=== PATIENT | female | born 1990 | race Caucasian/White ===

== ENCOUNTER 2018-07-24 10:47 | Emergency (ER) | payer SELFPAY ==
[~2018-07-24] VITALS: Ht 154.9 cm; Wt 45.4 kg
[2018-07-24] MEDS ORDERED: ACETAMINOPHEN 325 MG TAB PO ONE (11:30)
--- NOTE | 2018-07-24 13:52 | Diagnostic Imaging Report ---
Examination: CT BRAIN WITHOUT CONTRAST History:Left-sided headache. Earache. Comparison studies:None Technique: Axial images were obtained from the skull base to the vertex. Coronal and sagittal images reconstructed from the axial data. Dose modulation, iterative reconstruction, and/or weight based adjustment of the mA/kV was utilized to reduce the radiation dose to as low as reasonably achievable. Intravenous contrast: None Findings: Scalp: No abnormalities. Bones: No fractures, blastic or lytic lesions. Brain sulci: Appropriate for age. Ventricles: Normal in size and configuration. No hydrocephalus. Extra-axial space: No abnormalities. Parenchyma: No abnormal densities. No masses, hemorrhage, or acute or chronic cortical based vascular insults. Sellar/suprasellar region: No abnormalities. Craniocervical junction: Patent foramen magnum. No Chiari one malformation. Incidental findings: None. Impression: No intracranial abnormalities. Signed by: Dr. Martha Mccallum M.D. on 07/24/2018 1:48 PM
[2018-07-24 14:03] VITALS: BP 130/88
== END 2018-07-24 14:04 | disposition home or self-care (01) ==
LOC: ER 10:47
DX: K02.9 Dental caries, unspecified (principal); H92.02 Otalgia, left ear; R51 Headache; H91.3 Deaf nonspeaking, not elsewhere classified; F17.210 Nicotine dependence, cigarettes, uncomplicated
CPT/HCPCS: 70450; 99283

== ENCOUNTER 2018-08-18 09:26 | Emergency (ER) | payer SELFPAY ==
[~2018-08-18] VITALS: Ht 154.9 cm; Wt 45.4 kg
[2018-08-18] MEDS ORDERED: MORPHINE SULFATE 2 MG/ML SYR IV STA (09:38)
[2018-08-18] MEDS ORDERED: ONDANSETRON HCL INJ 2 MG/ML VIAL IV STA (09:38)
[2018-08-18] MEDS ORDERED: SODIUM CHLORIDE 0.9% 1000ML 1,000 ML IV SCH ×2 (09:45→11:00)
[2018-08-18 10:13] LABS: BASOPHILS % 0.3 % (0.0-1.0); EOSINOPHILS % 0.1 % (0.0-6.0); HEMATOCRIT 43.4 % (34.2-44.1); HEMOGLOBIN 15.1 g/dL (12.0-16.0); LYMPHOCYTES # (AUTO) 1.3 (1.0-3.2); LYMPHOCYTES % 10.9 % (18.0-39.1); MEAN CORPUSCULAR HEMOGLOBIN 31.3 pg (28-32); MEAN CORPUSCULAR HGB CONC 34.8 g/dL (31-35); MEAN CORPUSCULAR VOLUME 89.9 fL (81-99); MONOCYTES # (AUTO) 0.4 (0.2-0.8); MONOCYTES % 3.3 % (4.4-11.3); NEUTROPHILS # (AUTO) 10.2 (2.1-6.9); NEUTROPHILS % 85.1 % (38.7-80.0); PLATELET COUNT 238 x10e3/uL (140-360); RED BLOOD COUNT 4.83 x10e6/uL (3.6-5.1); RED CELL DISTRIBUTION WIDTH 11.8 % (11.7-14.4)
[2018-08-18 10:15] LABS: COLOR,URINE YELLOW (YELLOW)
[2018-08-18 10:16] LABS: BILIRUBIN,URINE NEGATIVE (NEGATIVE); CLARITY,URINE SL CLOUDY (CLEAR); KETONES,URINE 2+ (NEGATIVE); LEUKOCYTE ESTERASE ,URINE NEGATIVE (NEGATIVE); NITRITE,URINE NEGATIVE (NEGATIVE); PROTEIN,URINE DIPSTICK TRACE (NEGATIVE); URINE UROBILINOGEN 0.2 mg/dL (0.2 - 1)
[2018-08-18 10:17] LABS: PREGNANCY TEST, URINE NEGATIVE (NEGATIVE)
[2018-08-18 10:28] LABS: AMORPHOUS SEDIMENT,URINE RARE (FEW); EPITHELIAL CELLS,URINE MODERATE /LPF
[2018-08-18 10:29] LABS: MUCUS,URINE RARE (RARE)
[2018-08-18 10:41] LABS: ALANINE AMINOTRANSFERASE 11 IU/L (0-55); ALBUMIN 4.5 g/dL (3.5-5.0); ALBUMIN/GLOBULIN RATIO 1.5 (0.8-2.0); ALKALINE PHOSPHATASE 67 IU/L (40-150); AMYLASE 62 U/L (25-125); ANION GAP 18.7 mmol/L (8-16); BLOOD UREA NITROGEN 12 mg/dL (7-26); BUN/CREATININE RATIO 16 (6-25); CALCIUM 9.6 mg/dL (8.4-10.2); CARBON DIOXIDE 21 mmol/L (22-29); CHLORIDE 103 mmol/L (98-107); CREATININE, SERUM 0.77 mg/dL (0.57-1.11); EST GLOMERULAR FILTRATION RATE > 60 ML/MIN (60-); GLUCOSE 93 mg/dL (74-118); LIPASE 12 U/L (8-78); POTASSIUM 3.7 mmol/L (3.5-5.1); SODIUM 139 mmol/L (136-145)
[2018-08-18] MEDS ORDERED: PROMETHAZINE 12.5MG/ NACL 0.9% 12.5 MG/50 ML BAG IV ONE (12:00)
--- NOTE | 2018-08-18 12:16 | Diagnostic Imaging Report ---
Exam: Abdominal film upright and supine Clinical History: Vomiting Comparison: None. DISCUSSION: Frontal view of the abdomen shows a nonobstructive bowel gas pattern with mild amount of retained stool. Scattered loops of air-filled bowel. No abnormal calcifications. No acute bone abnormality. IMPRESSION: Nonobstructive bowel gas pattern. Mild amount of retained stool. Signed by: Dr. Reid Yancey M.D. on 08/18/2018 12:13 PM
[2018-08-18 12:39] VITALS: BP 122/55
== END 2018-08-18 12:48 | disposition home or self-care (01) ==
LOC: ER 09:26
DX: R10.13 Epigastric pain (principal); R11.2 Nausea with vomiting, unspecified; H91.3 Deaf nonspeaking, not elsewhere classified
CPT/HCPCS: 36415; 80053; 81001; 81025; 82150; 83690; 85025; 99284; J2270; J2405; J2550; J7030

== ENCOUNTER 2020-01-06 08:10 | Emergency (ER) | payer SELFPAY ==
[~2020-01-06] VITALS: Ht 154.9 cm; Wt 45.4 kg
[2020-01-06] MEDS ORDERED: BUPIVACAINE HCL 0.25% 10ML MPF VIAL INJ ONE (08:30)
== END 2020-01-06 08:40 | disposition home or self-care (01) ==
LOC: ER 08:10
DX: K08.89 Other specified disorders of teeth and supporting structures (principal); K04.7 Periapical abscess without sinus
CPT/HCPCS: 99281

== ENCOUNTER 2020-03-13 13:59 | Emergency (ER) | payer SELFPAY ==
[~2020-03-13] VITALS: Ht 154.9 cm; Wt 45.4 kg
[2020-03-13] MEDS ORDERED: KETOROLAC TROMETHAMINE 60 MG/2 ML VIAL IM ONE (14:30)
== END 2020-03-13 15:02 | disposition home or self-care (01) ==
LOC: ER 13:59
DX: K08.89 Other specified disorders of teeth and supporting structures (principal); K02.9 Dental caries, unspecified
CPT/HCPCS: 99282; J1885

== ENCOUNTER 2020-03-15 10:42 | Emergency (ER) | payer SELFPAY ==
[~2020-03-15] VITALS: Ht 154.9 cm; Wt 45.4 kg
== END 2020-03-15 11:34 | disposition home or self-care (01) ==
LOC: ER 10:42
DX: K08.89 Other specified disorders of teeth and supporting structures (principal); K02.9 Dental caries, unspecified; H91.3 Deaf nonspeaking, not elsewhere classified
CPT/HCPCS: 99282

== ENCOUNTER 2020-06-24 17:03 | Emergency (ER) | payer SELFPAY ==
[~2020-06-24] VITALS: Ht 154.9 cm; Wt 52.2 kg
[2020-06-24] MEDS ORDERED: SODIUM CHLORIDE 0.9% 1000ML 1,000 ML IV ONE (17:30)
--- OUTSIDE RECORDS SUMMARY | 2020-06-24 17:58 | XMS REPORT | Continuity of Care Document ---
Author Author [facility] t Organization [facility] Address [address] [place] [address] Phone Unavailable Care Team Providers Care Medical Services Manager Name Role Phone NO, PCP PCP Unavailable Bree LANE Attphys Unavailable Shirin HIGGINS Attphyyuriy Unavailable Problems This patient has no known problems. Allergies, Adverse Reactions, Alerts Allergy Name Allergy Type Status Severity Reaction(s) Onset Date Inacti ve Date Treating Clinician Comments Source clavulanic acid Allergy to Substance Active 2018-08-18 00:0 0:00 [facility] Amoxicillin Allergy to Substance Active 2018-08-18 00:00:00 [facility] Medications This patient has no known medications. Procedures This patient has no known procedures. Encounters Start Date/Time End Date/Time Encounter Type Admission Type [facility] Care Department Encounter ID Source 2020-03-15 10:42:00 2020-03-15 11:34:00 Departed Emergency Room [facility] [id number] [facility] 2020-03-13 13:59:00 2020-03-13 15:02:00 Departed Emergency Room [facility] [id number] [facility] 2020-01-06 08:10:00 2020-01-06 08:40:00 Departed Emergency Room [facility] [id number] [facility] 2018-08-18 09:26:00 2018-08-18 12:48:00 Departed Emergency Room [address] [facility] [id number] [facility] 2018-07-24 10:47:00 2018-07-24 14:04:00 Departed Emergency Room 1 TIFFANI HIGGINS [facility] [id number] [facility] Results Test Description Test Time Test Comments Results Result Comments Source ABDOMEN COMP INCL UPR or OCTUB 2018-08-18 12:06:00 [facility] [address] [address] Patient Name: YVETTE TOMPKINS MR #: [id number] : 1990 Age/Sex: 28/F Req #: [id number] Adm Physician: Ordered by: ADELINA LANE MD Report #: [id number] Location: ER Room/Bed: Procedure: [id number] DX/ABDOMEN COMP INCL UPR or OCTUB Exam Date: 08/18/18 Exam Time: 1150 REPORT STATUS: Signed Exam: Abdominal film upright and supine Clinical History: Vomiting Comparison: None. DISCUSSION: Frontal view of the abdomen shows a nonobstructive bowel gas pattern with mild amount of retained stool. Scattered loops of air-filled bowel. No abnormal calcifications. No acute bone abnormality. IMPRESSION: Nonobstructive bowel gas pattern. Mild amount of retained stool. Signed by: Dr. Fay Ayala M.D. on 08/18/2018 12:13 PM Dictated By: FAY AYALA MD 1213 Transcribed By: HERBER on 08/18/18 1213 COPY TO: ADELINA LANE MD Sodium Level 2018-08-18 10:41:00 Test Item Sodium Level (test code = 2951-2) 139 136-145 [facility]Pot[facility] Fdxmy9741-60-24 10:41:00* Test Item Value Reference Range Interpretation Comments Potassium Level (test code = 2823-3) 3.7 3.5-5.1 [facility] HospitalChloride Dbznr9482-76-02 10:41:00* Test Item Value Reference Range Interpretation Comments Chloride Level (test code = 2075-0) 103 98-107 [facility] HospitalCarbon Dioxide Hnkpz7791-01-78 10:41:00* Test Item Value Reference Range Interpretation Comments Carbon Dioxide Level (test code = 2028-9) 21 22-29 L [facility] HospitalAnion Pdi2087-10-54 10:41:00* Test Item Value Reference Range Interpretation Comments Anion Gap (test code = 75174-0) 18.7 8-16 H [facility] HospitalBlood Urea Ldmlcent0659-22-10 10:41:00* Test Item Value Reference Range Interpretation Comments Blood Urea Nitrogen (test code = 3094-0) 12 7-26 [facility] HospitalCreatinine2018-09-25 10:41:00* Test Item Value Reference Range Interpretation Comments Creatinine (test code = 2160-0) 0.77 0.57-1.11 [facility] HospitalBUN/Creatinine Isymq5472-87-58 10:41:00* Test Item Value Reference Range Interpretation Comments BUN/Creatinine Ratio (test code = 3097-3) 16 05-18 [facility] HospitalEstimat Glomerular Filtration Rate 2018-08-18 10:41:00* Test Item Value Reference Range Interpretation Comments Estimat Glomerular Filtration Rate (test code = 722845996) 60- >60 Ranges were taken from the National Kidney Disease Education Program and the [facility] literature.Reference ranges:60 or greater: Pvxzob42-09 ( for 3 consecutive months): Chronic kidney disease 15 or less: Kidney failureGonzales Memorial HospitalGlucose Lnhfp0859-43-00 10:41:00* Test Item Value Reference Range Interpretation Comments Glucose Level (test code = NJR2941) 93 74-118 [facility] HospitalCalcium Sauvn4713-35-93 10:41:00* Test Item Value Reference Range Interpretation Comments Calcium Level (test code = 84485-5) 9.6 8.4-10.2 [facility] HospitalTotal Rgrktnthf6173-26-53 10:41:00* Test Item Value Reference Range Interpretation Comments Total Bilirubin (test code = 1975-2) 1.7 0.2-1.2 H [facility] HospitalAspartate Amino Transf (AST/SGOT) 2018-08-18 10:41:00* Test Item Value Reference Range Interpretation Comments Aspartate Amino Transf (AST/SGOT) (test code = Aspartate Amino Transf (AST/SGOT)) 14 5-34 [facility] HospitalAlanine Aminotransferase (ALT/SGPT) 2018-08-18 10:41:00* Test Item Value Reference Range Interpretation Comments Alanine Aminotransferase (ALT/SGPT) (test code = 1742-6) 11 0-55 [facility] HospitalTom[facility] Zxesazo1591-09-32 10:41:00* Test Item Value Reference Range Interpretation Comments Total Protein (test code = 2885-2) 7.5 6.5-8.1 [facility] HospitalAlbumin2018-09-25 10:41:00* Test Item Value Reference Range Interpretation Comments Albumin (test code = 1751-7) 4.5 3.5-5.0 [facility] HospitalGlobulin2018-09-25 10:41:00* Test Item Value Reference Range Interpretation Comments Globulin (test code = 42621-2) 3.0 2.3-3.5 [facility] HospitalAlbumin/Globulin Qdoxq1309-71-28 10:41:00 * Test Item Value Reference Range Interpretation Comments Albumin/Globulin Ratio (test code = 1759-0) 1.5 0.8-2.0 [facility] HospitalAlkaline Pdyemtfhhdy9830-07-82 10:41:00* Test Item Value Reference Range Interpretation Comments Alkaline Phosphatase (test code = 6768-6) 67 40-150 [facility] HospitalAmylase Ugppe0794-71-35 10:41:00* Test Item Value Reference Range Interpretation Comments Amylase Level (test code = 1798-8) 62 25-125 [facility] HospitalLipase2018-09-25 10:41:00* Test Item Value Reference Range Interpretation Comments Lipase (test code = 3040-3) 12 8-78 [facility] HospitalUrine ZXH5456-68-67 10:29:00* Test Item Value Reference Range Interpretation Comments Urine WBC (test code = 5821-4) NONE 0-5 [facility] HospitalUrine AGF7331-89-07 10:29:00* Test Item Value Reference Range Interpretation Comments Urine RBC (test code = 39312-6) NONE 0-5 [facility] HospitalUrine Yxcxbavo8847-61-64 10:29:00* Test Item Value Reference Range Interpretation Comments Urine Bacteria (test code = 56781-3) NONE NONE [facility] HospitalUrine Epithelial Buxel6086-00-35 10:29:00 * Test Item Value Reference Range Interpretation Comments Urine Epithelial Cells (test code = 28848-1) MODERATE NONE [facility] Amorphous Dxvcwdrw4156-93-45 10:29:00* Test Item Value Reference Range Interpretation Comments Urine Amorphous Sediment (test code = 8246-1) RARE FEW [facility] HospitalUrine Pesnf2748-84-09 10:29:00* Test Item Value Reference Range Interpretation Comments Urine Mucus (test code = 8247-9) RARE RARE [facility] HospitalUrine Zompg1154-97-90 10:17:00* Test Item Value Reference Range Interpretation Comments Urine Color (test code = 5778-6) YELLOW YELLOW [facility] HospitalUrine Zjjjizw5728-29-27 10:17:00* Test Item Value Reference Range Interpretation Comments Urine Clarity (test code = 15743-1) SL CLOUDY CLEAR [facility] HospitalUrine Specific Qrityhy0877-03-86 10:17:00 * Test Item Value Reference Range Interpretation Comments Urine Specific [place] (test code = 5811-5) 1.030 1.010-1.02 5 H [facility] HospitalUrine vA1814-34-65 10:17:00* Test Item Value Reference Range Interpretation Comments Urine pH (test code = 56056-6) 6 5-7 [facility] HospitalUrine Leukocyte Fietxkej9967-73-04 10:17:00* Test Item Value Reference Range Interpretation Comments Urine Leukocyte Esterase (test code = 5799-2) NEGATIVE NEGATIVE [facility] HospitalUrine Bggmbww1013-31-91 10:17:00* Test Item Value Reference Range Interpretation Comments Urine Nitrite (test code = 82482-5) NEGATIVE NEGATIVE [facility] HospitalUrine Tiafvet5709-53-32 10:17:00* Test Item Value Reference Range Interpretation Comments Urine Protein (test code = 5804-0) TRACE NEGATIVE H [facility] HospitalUrine Glucose (UA)2018-08-18 10:17:00* Test Item Value Reference Range Interpretation Comments Urine Glucose (UA) (test code = 2349-9) NEGATIVE NEGATIVE [facility] HospitalUrine Zkceetp6726-15-85 10:17:00* Test Item Value Reference Range Interpretation Comments Urine Ketones (test code = 44436-3) 2+ NEGATIVE H [facility] HospitalUrine Kfdytidkutjx1700-13-09 10:17:00* Test Item Value Reference Range Interpretation Comments Urine Urobilinogen (test code = 18817-8) 0.2 0.2-1 [facility] HospitalUrine Dqkcwufck2836-06-48 10:17:00* Test Item Value Reference Range Interpretation Comments Urine Bilirubin (test code = 1978-6) NEGATIVE NEGATIVE [facility] HospitalUrine Sjfmp4635-88-18 10:17:00* Test Item Value Reference Range Interpretation Comments Urine Blood (test code = 89999-7) TRACE NEGATIVE H [facility] HospitalUrine Oluf1648-37-60 10:17:00* Test Item Value Reference Range Interpretation Comments Urine Test (test code = 2106-3) NEGATIVE NEGATIVE [facility] HospitalWhite Blood Plmbh1205-39-88 10:15:00* Test Item Value Reference Range Interpretation Comments White Blood Count (test code = 6690-2) 11.96 4.8-10.8 H [facility] HospitalRed Blood Atngp0560-94-99 10:15:00* Test Item Value Reference Range Interpretation Comments Red Blood Count (test code = 789-8) 4.83 3.6-5.1 [facility] HospitalHemoglobin2018-09-25 10:15:00* Test Item Value Reference Range Interpretation Comments Hemoglobin (test code = 96912-0) 15.1 12.0-16.0 [facility] HospitalHematocrit2018-09-25 10:15:00* Test Item Value Reference Range Interpretation Comments Hematocrit (test code = 4544-3) 43.4 34.2-44.1 [facility] HospitalMean Corpuscular Zekyiq8475-80-11 10:15:00* Test Item Value Reference Range Interpretation Comments Mean Corpuscular Volume (test code = 787-2) 89.9 81-99 [facility] HospitalMean Corpuscular Lemmqrzbvs6916-41-06 10:15:00* Test Item Value Reference Range Interpretation Comments Mean Corpuscular Hemoglobin (test code = 785-6) 31.3 28-32 [facility] HospitalMean Corpuscular Hemoglobin Concent 2018-08-18 10:15:00* Test Item Value Reference Range Interpretation Comments Mean Corpuscular Hemoglobin Concent (test code = 786-4) 34.8 31-35 [facility] HospitalRed Cell Distribution Bqbtz6216-51-82 10:15:00* Test Item Value Reference Range Interpretation Comments Red Cell Distribution Width (test code = 94518-7) 11.8 11.7 -14.4 [facility] HospitalPlatelet Upjqf9338-92-41 10:15:00* Test Item Value Reference Range Interpretation Comments Platelet Count (test code = 777-3) 238 140-360 [facility] HospitalNeutrophils (%) (Auto)2018-08-18 10:15:00 * Test Item Value Reference Range Interpretation Comments Neutrophils (%) (Auto) (test code = 88002-7) 85.1 38.7-80.0 H [facility] HospitalLymphocytes (%) (Auto)2018-08-18 10:15:00 * Test Item Value Reference Range Interpretation Comments Lymphocytes (%) (Auto) (test code = 736-9) 10.9 18.0-39.1 L [facility] HospitalMonocytes (%) (Auto)2018-08-18 10:15:00* Test Item Value Reference Range Interpretation Comments Monocytes (%) (Auto) (test code = 5905-5) 3.3 4.4-11.3 L [facility] HospitalEosinophils (%) (Auto)2018-08-18 10:15:00 * Test Item Value Reference Range Interpretation Comments Eosinophils (%) (Auto) (test code = 713-8) 0.1 0.0-6.0 [facility] HospitalBasophils (%) (Auto)2018-08-18 10:15:00* Test Item Value Reference Range Interpretation Comments Basophils (%) (Auto) (test code = 706-2) 0.3 0.0-1.0 [facility] HospitalIM GRANULOCYTES %2018-08-18 10:15:00* Test Item Value Reference Range Interpretation Comments IM GRANULOCYTES % (test code = IM GRANULOCYTES %) 0.3 0.0- 1.0 [facility] HospitalNeutrophils # (Auto)2018-08-18 10:15:00* Test Item Value Reference Range Interpretation Comments Neutrophils # (Auto) (test code = 751-8) 10.2 2.1-6.9 H [facility] HospitalLymphocytes # (Auto)2018-08-18 10:15:00* Test Item Value Reference Range Interpretation Comments Lymphocytes # (Auto) (test code = 79176-8) 1.3 1.0-3.2 [facility] HospitalMonocytes # (Auto)2018-08-18 10:15:00* Test Item Value Reference Range Interpretation Comments Monocytes # (Auto) (test code = 742-7) 0.4 0.2-0.8 [facility] HospitalEosinophils # (Auto)2018-08-18 10:15:00* Test Item Value Reference Range Interpretation Comments Eosinophils # (Auto) (test code = 711-2) 0.0 0.0-0.4 [facility] HospitalBasophils # (Auto)2018-08-18 10:15:00* Test Item Value Reference Range Interpretation Comments Basophils # (Auto) (test code = 704-7) 0.0 0.0-0.1 [facility] HospitalAbsolute Immature Granulocyte (auto 2018-08-18 10:15:00* Test Item Value Reference Range Interpretation Comments Absolute Immature Granulocyte (auto (zeke t code = Absolute Immature Granulocyte (auto) 0.03 0-0.1 [facility] HospitalCT BRAIN GO3492-23-51 13:47:00 [facility] [address] [address] Patient Name: YVETTE TOMPKINS MR #: [id number] : 1990 Age/Sex: 28/F Req #: [id number] Adm Physician: Ordered by: AMARIS TREVIÑO NP Report #: [id number] Location: ER Room/Bed: Procedure: [id number] CT/CT BRAIN WO Exam Date: Exam Time: 1224 REPORT STATUS: Signed Examination: CT BRAIN WITHOUT CONTRAST History:Left-sided headache. Earache . Comparison studies:None Technique: Axial images were obtained from th e skull base to the vertex. Coronal and sagittal images reconstructed from the axial data. Dose modulation, iterative reconstruction, and/or weight based ad justment of the mA/kV was utilized to reduce the radiation dose to as low as r easonably achievable. Intravenous contrast: None Findings: Scalp: No abnormalities. Bones: No fractures, blastic or lytic lesions. Brain s ulci: Appropriate for age. Ventricles: Normal in size and configuration. No hy drocephalus. Extra-axial space: No abnormalities. Parenchyma: No abnormal densities. No masses, hemorrhage, or acute or chronic cortical based vascular insults. Sellar/suprasellar region: No abnormalities. Craniocer vical junction: Patent foramen magnum. No Chiari one malformation. Incident al findings: None. Impression: No intracranial abnormalities. Signed by: Dr. Martha Mccallum M.D. on 07/24/2018 1:48 PM Dictated By: MARTHA RUIZ MD 1348 Transcribed By: HERBER on 07/24/18 1348 COPY TO: AMARIS JIMENES NP
--- NOTE | 2020-06-24 17:59 | Diagnostic Imaging Report ---
Exam: Head CT without contrast History: Headache, migraine Comparison studies: Head CT 07/24/2018 Technique: Axial images were obtained from the skull base to the vertex. Coronal and sagittal images reconstructed from the axial data. Dose modulation, iterative reconstruction, and/or weight based adjustment of the mA/kV was utilized to reduce the radiation dose to as low as reasonably achievable. Radiation dose: Total DLP: 1036.57 mGy*cm. Estimated effective dose: DLP x 0.015 Intravenous contrast: None Findings: Scalp: No abnormalities. Bones: No fractures, blastic or lytic lesions. Brain sulci: Appropriate for age. Ventricles: Normal in size and configuration. No hydrocephalus. Extra-axial spaces: No masses, no fluid collection. Parenchyma: No abnormal densities. No masses, hemorrhage, acute or chronic vascular insults. Sellar/suprasellar region: No abnormalities. Craniocervical junction: Patent foramen magnum. No Chiari one malformation. Included paranasal sinuses: Small polyps or retention cysts in the partially imaged left maxillary sinus with persistent nonspecific frothy secretions in the right sphenoid sinus and left posterior ethmoid air cell. Incidental findings: Chronic inflammatory changes at the left mastoid tip which is partially opacified and sclerotic. IMPRESSION: 1. No intracranial abnormalities. 2. No changes from the prior head CT of 07/24/2018. Signed by: Dr. Fidencio Ulloa M.D. on 06/24/2020 5:56 PM
[2020-06-24] MEDS ORDERED: DIPHENHYDRAMINE HCL INJ 50 MG/ML VIAL IV ONE (18:00)
[2020-06-24] MEDS ORDERED: KETOROLAC TROMETHAMINE 30 MG/ML VIAL IV ONE (18:00)
[2020-06-24] MEDS ORDERED: METOCLOPRAMIDE HCL 10 MG/2ML VIAL IV ONE (18:00)
[2020-06-24 18:19] LABS: BASOPHILS % 0.3 % (0.0-1.0); EOSINOPHILS # (AUTO) 0.3 (0.0-0.4); EOSINOPHILS % 2.6 % (0.0-6.0); HEMATOCRIT 44.1 % (34.2-44.1); HEMOGLOBIN 15.3 g/dL (12.0-16.0); LYMPHOCYTES # (AUTO) 2.1 (1.0-3.2); LYMPHOCYTES % 21.2 % (18.0-39.1); MEAN CORPUSCULAR HEMOGLOBIN 31.4 pg (28-32); MEAN CORPUSCULAR HGB CONC 34.7 g/dL (31-35); MEAN CORPUSCULAR VOLUME 90.4 fL (81-99); MONOCYTES # (AUTO) 0.6 (0.2-0.8); MONOCYTES % 5.6 % (4.4-11.3); PLATELET COUNT 219 x10e3/uL (140-360); RED BLOOD COUNT 4.88 x10e6/uL (3.6-5.1); RED CELL DISTRIBUTION WIDTH 11.8 % (11.7-14.4)
[2020-06-24 18:45] LABS: ALANINE AMINOTRANSFERASE 11 IU/L (0-55); ALBUMIN 4.1 g/dL (3.5-5.0); ALBUMIN/GLOBULIN RATIO 1.3 (0.8-2.0); ALKALINE PHOSPHATASE 70 IU/L (40-150); ANION GAP 12.9 mmol/L (8-16); BLOOD UREA NITROGEN 15 mg/dL (7-26); BUN/CREATININE RATIO 19 (6-25); CALCIUM 8.9 mg/dL (8.4-10.2); CARBON DIOXIDE 25 mmol/L (22-29); CHLORIDE 106 mmol/L (98-107); EST GLOMERULAR FILTRATION RATE > 60 ML/MIN (60-); GLUCOSE 86 mg/dL (74-118); POTASSIUM 3.9 mmol/L (3.5-5.1); SODIUM 140 mmol/L (136-145)
--- NOTE | 2020-06-24 18:49 | NUR ---
REPORT TO DAVIDSON Gray
--- NOTE | 2020-06-24 19:04 | Emergency Department Note ---
History of Present Illnes History of Present Illness Chief Complaint: Headache History of Present Illness This is a 30 year old female HEADACHE. AAOX4. AMBULATORY. NO NEURO DEFICITS NOTED TIME OF TRIAGE. ONSET 2 PM. TOOK ADVIL UPHOLSTERY SEWER, DID NOT HELP. PT IS DEAF AND MUTE. PT COMMUNICATES BY WRITING. Historian: Patient Arrival Mode: Car Periodicals Library Assistant Required: No Onset (how long ago): hour(s) Location: LEFT SIDE HEAD Quality: PAIN Radiation: Reports non-radiation Severity: severe Onset quality: gradual Timing of current episode: constant Progression: unchanged Chronicity: recurrent Context: Denies recent illness Relieving factors: none Exacerbating factors: other (WORSE WITH BRIGHT LIGHTS) Associated symptoms: Reports denies other symptoms Treatments prior to arrival: none Past Medical/Family History Physician Review I have reviewed the patient's past medical and family history. Any updates have been documented here. Past Medical History Recent Fever: No Clinical Suspicion of Infectio: No New/Unexplained Change in Ment: No Past Medical History: Migraines Other Medical History: DEAF MUTE Past Surgical History: T&A Other Surgery: TONSILECTOMY EYE SURGERY EAR TUBES Social History Smoking Cessation: Never Smoker Counseling Performed: No Alcohol Use: None Any Illegal Drug Use: No TB Exposure/Symptoms: No Physically hurt or threatened: No Family History Family history of heart diseas: No Other Last Tetanus: UKN Any Pre-Existing Lines (PICC,: No Review of Systems Review of Systems Constitutional: Reports no symptoms EENTM: Reports no symptoms Cardiovascular: Reports no symptoms Respiratory: Reports no symptoms Gastrointestinal: Reports no symptoms Genitourinary: Reports no symptoms Musculoskeletal: Reports no symptoms Integumentary: Reports no symptoms Neurological: Reports as per HPI, Reports headache Psychological: Reports no symptoms Endocrine: Reports no symptoms Hematological/Lymphatic: Reports no symptoms Physical Exam Related Data Allergies: Coded Allergies: amoxicillin (Verified Allergy, Unknown, 08/18/18) clavulanic acid (Verified Allergy, Unknown, 08/18/18) Triage Vital Signs Vital Signs Date Time Temp Pulse Resp B/P (MAP) Pulse Ox O2 Delivery O2 Flow Rate FiO2 06/24/20 17:10 97.5 77 16 137/81 99 Room Air Vital signs reviewed: Yes Physical Exam CONSTITUTIONAL Constitutional: Present well-developed, Present well-nourished HENT HENT: Present normocephalic, Present atraumatic, Present oropharynx clear/moist, Present nose normal HENT L/R: Present left ext ear normal, Present right ext ear normal EYES Eyes: Reports PERRL, Reports conjunctivae normal NECK Neck: Present ROM normal PULMONARY Pulmonary: Present effort normal, Present breath sounds normal CARDIOVASCULAR Cardiovascular: Present regular rhythm, Present heart sounds normal, Present capillary refill normal, Present normal rate GASTROINTESTINAL Abdominal: Present soft, Present nontender, Present bowel sounds normal GENITOURINARY Genitourinary: Present exam deferred SKIN Skin: Present warm, Present dry MUSCULOSKELETAL Musculoskeletal: Present ROM normal NEUROLOGICAL Neurological: Present alert, Present oriented x 3, Present no gross motor or sensory deficits, Present cranial nerve deficit (RIGHT EYE WITH DECR EOMI - 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 ) PSYCHOLOGICAL Psychological: Present mood/affect normal, Present judgement normal Results Laboratory Result Diagram: 06/24/20 1759 06/24/20 1759 Laboratory Laboratory Tests Test 06/24/20 17:59 White Blood Count 9.94 x10e3/uL (4.8-10.8) Red Blood Count 4.88 x10e6/uL (3.6-5.1) Hemoglobin 15.3 g/dL (12.0-16.0) Hematocrit 44.1 % (34.2-44.1) Mean Corpuscular Volume 90.4 fL (81-99) Mean Corpuscular Hemoglobin 31.4 pg (28-32) Mean Corpuscular Hemoglobin Concent 34.7 g/dL (31-35) Red Cell Distribution Width 11.8 % (11.7-14.4) Platelet Count 219 x10e3/uL (140-360) Neutrophils (%) (Auto) 70.0 % (38.7-80.0) Lymphocytes (%) (Auto) 21.2 % (18.0-39.1) Monocytes (%) (Auto) 5.6 % (4.4-11.3) Eosinophils (%) (Auto) 2.6 % (0.0-6.0) Basophils (%) (Auto) 0.3 % (0.0-1.0) Neutrophils # (Auto) 7.0 (2.1-6.9) Lymphocytes # (Auto) 2.1 (1.0-3.2) Monocytes # (Auto) 0.6 (0.2-0.8) Eosinophils # (Auto) 0.3 (0.0-0.4) Basophils # (Auto) 0.0 (0.0-0.1) Absolute Immature Granulocyte (auto 0.03 x10e3/uL (0-0.1) Sodium Level 140 mmol/L (136-145) Potassium Level 3.9 mmol/L (3.5-5.1) Chloride Level 106 mmol/L (98-107) Carbon Dioxide Level 25 mmol/L (22-29) Anion Gap 12.9 mmol/L (8-16) Blood Urea Nitrogen 15 mg/dL (7-26) Creatinine 0.80 mg/dL (0.57-1.11) Estimat Glomerular Filtration Rate > 60 ML/MIN (60-) BUN/Creatinine Ratio 19 (6-25) Glucose Level 86 mg/dL (74-118) Calcium Level 8.9 mg/dL (8.4-10.2) Total Bilirubin 0.5 mg/dL (0.2-1.2) Aspartate Amino Transf (AST/SGOT) 17 IU/L (5-34) Alanine Aminotransferase (ALT/SGPT) 11 IU/L (0-55) Alkaline Phosphatase 70 IU/L (40-150) Total Protein 7.3 g/dL (6.5-8.1) Albumin 4.1 g/dL (3.5-5.0) Globulin 3.2 g/dL (2.3-3.5) Albumin/Globulin Ratio 1.3 (0.8-2.0) Human Chorionic Gonadotropin, Qual Negative (NEGATIVE) Lab results reviewed: Yes Imaging Imaging results reviewed: Yes Assessment & Plan Medical Decision Making MDM SEVERE HEADACHE - CBC, CHEM, PREG, CT BRAIN - R/O INTRACRANIAL HEMORRHAGE Reassessment Reassessment IMPROVED WITH IVF'S, COCKTAIL. DC WITH FIORICET Assessment & Plan Final Impression: (1) Migraine Depart Disposition: HOME, SELF-CARE Last Vital Signs Date Time Temp Pulse Resp B/P (MAP) Pulse Ox O2 Delivery O2 Flow Rate FiO2 06/24/20 18:54 99.4 71 18 119/85 100 Room Air Medications in the ED Ketorolac Tromethamine 30 mg ONCE ONCE IV Last administered on 06/24/20at 18:45; Admin Dose 30 MG; Start 06/24/20 at 18:00; Stop 06/24/20 at 18:01; Status DC Diphenhydramine HCl 25 mg NOW ONCE IV Last administered on 06/24/20at 18:06; Admin Dose 25 MG; Start 06/24/20 at 18:00; Stop 06/24/20 at 18:01; Status DC Metoclopramide HCl 5 mg ONCE ONCE IV Last administered on 06/24/20at 18:06; Admin Dose 5 MG; Start 06/24/20 at 18:00; Stop 06/24/20 at 18:01; Status DC Sodium Chloride 1,000 ml @ 0 mls/hr Q0M ONCE IV Last administered on 06/24/20at 18:06; Admin Dose 1,000 MLS/HR; Start 06/24/20 at 17:30; Stop 06/24/20 at 17:31; Status DC OSBALDO COLEY MD Jun 24, 2020 19:04
== END 2020-06-24 19:30 | disposition home or self-care (01) ==
LOC: ER 17:07
DX: G43.909 Migraine, unspecified, not intractable, without status migrainosus (principal); H91.3 Deaf nonspeaking, not elsewhere classified
CPT/HCPCS: 36415; 70450; 80053; 84702; 85025; 99284; J1200; J1885; J2765; J7030

== ENCOUNTER 2020-06-29 07:36 | Emergency (ER) | payer SELFPAY ==
[~2020-06-29] VITALS: Ht 165.1 cm; Wt 54.4 kg
--- NOTE | 2020-06-29 08:19 | NUR ---
TRANSPORTATION DIRECTOR PHONE USED. MD EXTENSIVELY SPOKE WITH PT IN TRIAGE >30 MINUTES.
--- NOTE | 2020-06-29 08:19 | NUR ---
EXTENSIVE D/C INSTRUCTIONS AND RESOURCES GIVEN TO PT WITH HER STATING UNDERSTANDING (WRITTEN, PT IS DEAF/MUTE)
[2020-06-29] MEDS ORDERED: CLINDAMYCIN HC300 MG PO ×2 (08:32→08:36)
--- OUTSIDE RECORDS SUMMARY | 2020-06-29 08:33 | XMS REPORT | Continuity of Care Document ---
Author Author [facility] t Organization [facility] Address [address] [place] [address] Phone Unavailable Care Team Providers Care Piece Meat Trimmer Name Role Phone NO, PCP PCP Unavailable VIANCA A OSBALDO Attphys Unavailable MANEEBree NOVOA Attphys Unavailable Shirin HIGGINS Attphys Unavailable Problems Condition Name Condition Details Condition Category Status Onset Date Resolution Date Last Treatment Date Treating Clinician Comments Source Migraine headache Problem Active [facility] Allergies, Adverse Reactions, Alerts Allergy Name Allergy Type Status Severity Reaction(s) Onset Date Inacti ve Date Treating Clinician Comments Source clavulanic acid Allergy to substance Active 2018-08-18 00:0 0:00 [facility] Amoxicillin Allergy to substance Active 2018-08-18 00:00:00 [facility] Social History Social Habit Start Date Stop Date Quantity Comments Source Sex Assigned At 1990 00:00:00 1990 00:00:00 Female [facility] Medications This patient has no known medications. Vital Signs Vital Name Observation Time Observation Value Comments Source Weight 2020-06-24 17:10:00 115 [lb_av] [facility] BMI (Body Mass Index) 2020-06-24 17:10:00 21.7 kg/m2 [facility] Procedures Procedure Date / Time Performed Performing Clinician Quincy e Computed tomography of brain without radiopaque contrast 2020-06 00:00:00 [facility] Plan of Care Planned Activity Planned Date Details Comments Source Instructions Headache - Migraine (Adult) [facility] Encounters Start Date/Time End Date/Time Encounter Type Admission Type [facility] Care Department Encounter ID Source 2020-06-24 17:07:00 2020-06-24 19:30:00 Departed Emergency Room 1 OSBALDO COLEY [facility] [id number] [facility] - Patients [facility] 2020-03-15 10:42:00 2020-03-15 11:34:00 Departed Emergency Room [facility] [id number] [facility] 2020-03-13 13:59:00 2020-03-13 15:02:00 Departed Emergency Room [facility] [id number] [facility] Patients [facility] 2020-01-06 07:10:00 2020-01-06 07:40:00 Departed Emergency Room [facility] [id number] [facility] Patients [facility] 2018-08-18 09:26:00 2018-08-18 12:48:00 Departed Emergency Room [address] [facility] [id number] [facility] 2018-07-24 10:47:00 2018-07-24 14:04:00 Departed Emergency Room 1 TIFFANI HIGGINS [facility] [id number] [facility] Results Test Description Test Time Test Comments Results Result Comments Source Blood leukocytes automated count (number/volume) 2020-06-24 17:59:00 Test Item White Blood Count (test code = 6690-2) 9.94 4.8-10.8 [facility] erythrocytes automated count (number/volume)2020-06-24 17:59:00* Test Item Value Reference Range Interpretation Comments Red Blood Count (test code = 789-8) 4.88 3.6-5.1 [facility]Blood hemoglobin measurement (moles/volume)2020-06-24 17:59:00* Test Item Value Reference Range Interpretation Comments Hemoglobin (test code = 15161-1) 15.3 12.0-16.0 [facility] ResourcesAutomated blood hematocrit (volume fraction)2020-06-24 17:59:00* Test Item Value Reference Range Interpretation Comments Hematocrit (test code = 4544-3) 44.1 34.2-44.1 [facility] ResourcesAutomated erythrocyte mean corpuscular bjrjmo4615-03-23 17:59:00* Test Item Value Reference Range Interpretation Comments Mean Corpuscular Volume (test code = 787-2) 90.4 81-99 [facility] ResourcesAutomated erythrocyte mean corpuscular hemoglobin (mass per erythrocyte)2020-06-24 17:59:00* Test Item Value Reference Range Interpretation Comments Mean Corpuscular Hemoglobin (test code = 785-6) 31.4 28-32 [facility] ResourcesAutomated erythrocyte mean corpuscular hemoglobin concentration measurement (mass/volume)2020-06-24 17:59:00* Test Item Value Reference Range Interpretation Comments Mean Corpuscular Hemoglobin Concent (test code = 786-4) 34.7 31-35 [facility] ResourcesRDW JuaFn-Tqb2838-21-01 17:59:00* Test Item Value Reference Range Interpretation Comments Red Cell Distribution Width (test code = 78433-1) 11.8 11.7 -14.4 [facility] ResourcesAutomated blood platelet count (count/volume)2020-06-24 17:59:00* Test Item Value Reference Range Interpretation Comments Platelet Count (test code = 777-3) 219 140-360 [facility] ResourcesAutomated blood segmented neutrophil count as percentage of total gxlqmbwcjo3977-70-89 17:59:00* Test Item Value Reference Range Interpretation Comments Neutrophils (%) (Auto) (test code = 89365-6) 70.0 38.7-80.0 [facility] ResourcesAutomated blood lymphocyte count as percentage ot total nvyplfcpcx0293-99-56 17:59:00* Test Item Value Reference Range Interpretation Comments Lymphocytes (%) (Auto) (test code = 736-9) 21.2 18.0-39.1 [facility] ResourcesAutomated blood monocyte count as percentage of total mlfditvjkb9996-03-40 17:59:00* Test Item Value Reference Range Interpretation Comments Monocytes (%) (Auto) (test code = 5905-5) 5.6 4.4-11.3 [facility] ResourcesAutomated blood eosinophil count as percentage of total axigtstlpt6563-58-52 17:59:00* Test Item Value Reference Range Interpretation Comments Eosinophils (%) (Auto) (test code = 713-8) 2.6 0.0-6.0 [facility] ResourcesAutomated blood basophil count as percentage of total sagwgxotmg8177-84-16 17:59:00* Test Item Value Reference Range Interpretation Comments Basophils (%) (Auto) (test code = 706-2) 0.3 0.0-1.0 [facility] ResourcesFluoroscopic procedure less than one hour jujyaarr7681-72-84 17:59:00* Test Item Value Reference Range Interpretation Comments IM GRANULOCYTES % (test code = IM GRANULOCYTES %) 0.3 0.0- 1.0 [facility] ResourcesAutomated blood neutrophil count 2020-06-24 17:59:00* Test Item Value Reference Range Interpretation Comments Neutrophils # (Auto) (test code = 751-8) 7.0 2.1-6.9 [facility] ResourcesBlood lymphocytes count (number/volume) 2020-06-24 17:59:00* Test Item Value Reference Range Interpretation Comments Lymphocytes # (Auto) (test code = 25380-2) 2.1 1.0-3.2 [facility] ResourcesBlood monocytes automated count (number/volume)2020-06-24 17:59:00* Test Item Value Reference Range Interpretation Comments Monocytes # (Auto) (test code = 742-7) 0.6 0.2-0.8 [facility] ResourcesAutomated blood eosinophil count 2020-06-24 17:59:00* Test Item Value Reference Range Interpretation Comments Eosinophils # (Auto) (test code = 711-2) 0.3 0.0-0.4 [facility] ResourcesAutomated blood basophil count (count/volume)2020-06-24 17:59:00* Test Item Value Reference Range Interpretation Comments Basophils # (Auto) (test code = 704-7) 0.0 0.0-0.1 [facility] ResourcesFluoroscopic procedure less than one hour pxxppvgs4545-38-89 17:59:00* Test Item Value Reference Range Interpretation Comments Absolute Immature Granulocyte (auto (zeke t code = Absolute Immature Granulocyte (auto) 0.03 0-0.1 [facility] sodium measurement (moles/volume)2020-06-24 17:59:00* Test Item Value Reference Range Interpretation Comments Sodium Level (test code = 2951-2) 140 136-145 [facility] potassium measurement (moles/volume)2020-06-24 17:59:00* Test Item Value Reference Range Interpretation Comments Potassium Level (test code = 2823-3) 3.9 3.5-5.1 [facility] plasma chloride measurement (moles/volume)2020-06-24 17:59:00* Test Item Value Reference Range Interpretation Comments Chloride Level (test code = 2075-0) 106 98-107 [facility] or plasma carbon dioxide, total measurement (moles/volume)2020-06-24 17:59:00* Test Item Value Reference Range Interpretation Comments Carbon Dioxide Level (test code = 2028-9) 25 22-29 [facility] or plasma anion uhf3572-55-58 17:59:00* Test Item Value Reference Range Interpretation Comments Anion Gap (test code = 57904-1) 12.9 8-16 [facility] or plasma urea nitrogen measurement (mass/volume)2020-06-24 17:59:00* Test Item Value Reference Range Interpretation Comments Blood Urea Nitrogen (test code = 3094-0) 15 7-26 [facility]ere[facility] or plasma creatinine measurement (mass/volume)2020-06-24 17:59:00* Test Item Value Reference Range Interpretation Comments Creatinine (test code = 2160-0) 0.80 0.57-1.11 [facility] or plasma urea nitrogen/creatinine mass zvjqp3965-84-53 17:59:00* Test Item Value Reference Range Interpretation Comments BUN/Creatinine Ratio (test code = 3097-3) 19 6-25 [facility] ResourcesEstimated glomerular filtration rate (GFR) qvxpqqokvbfuh9165-92-72 17:59:00* Test Item Value Reference Range Interpretation Comments Estimat Glomerular Filtration Rate (test code = 029783984) > 60 >60 Ranges were taken from the National Kidney Disease Education Program and the [facility] literature.Reference ranges:60 or greater: Lluvqx47-50 ( for 3 consecutive months): Chronic kidney disease 15 or less: Kidney failureJoint [facility] between [facility] ResourcesGlucose mzvcakygurg8731-67-45 17:59:00* Test Item Value Reference Range Interpretation Comments Glucose Level (test code = MKX5203) 86 74-118 [facility] or plasma calcium measurement (mass/volume)2020-06-24 17:59:00* Test Item Value Reference Range Interpretation Comments Calcium Level (test code = 28418-1) 8.9 8.4-10.2 [facility]ere[facility] or plasma total bilirubin measurement (mass/volume)2020-06-24 17:59:00* Test Item Value Reference Range Interpretation Comments Total Bilirubin (test code = 1975-2) 0.5 0.2-1.2 [facility] ResourcesFluoroscopic procedure less than one hour rrksbykj7944-43-53 17:59:00* Test Item Value Reference Range Interpretation Comments Aspartate Amino Transf (AST/SGOT) (test code = Aspartate Amino Transf (AST/SGOT)) 17 5-34 [facility]ererum or plasma alanine aminotransferase measurement (enzymatic activity/volume)2020-06-24 17:59:00* Test Item Value Reference Range Interpretation Comments Alanine Aminotransferase (ALT/SGPT) (test code = 1742-6) 11 0-55 [facility]ererum or plasma protein measurement (mass/volume)2020-06-24 17:59:00* Test Item Value Reference Range Interpretation Comments Total Protein (test code = 2885-2) 7.3 6.5-8.1 [facility]ererum or plasma albumin measurement (mass/volume)2020-06-24 17:59:00* Test Item Value Reference Range Interpretation Comments Albumin (test code = 1751-7) 4.1 3.5-5.0 [facility] ResourcesPlasma globulin measurement (mass/volume) 2020-06-24 17:59:00* Test Item Value Reference Range Interpretation Comments Globulin (test code = 16556-2) 3.2 2.3-3.5 [facility]ererum or plasma albumin/globulin mass gintq3599-23-99 17:59:00* Test Item Value Reference Range Interpretation Comments Albumin/Globulin Ratio (test code = 1759-0) 1.3 0.8-2.0 [facility]ererum or plasma alkaline phosphatase measurement (enzymatic activity/volume)2020-06-24 17:59:00* Test Item Value Reference Range Interpretation Comments Alkaline Phosphatase (test code = 6768-6) 70 40-150 [facility] Centererum or plasma choriogonadotropin ( test) ggwtylqcw9643-25-58 17:59:00* Test Item Value Reference Range Interpretation Comments Human Chorionic Gonadotropin, Qual (test code = 2118-8) NEGATIVE NEGATIVE [facility] ResourcesCT BRAIN UC0264-03-67 17:52:00 [facility] [address] [address] Patient Name: YVETTE TOMPKINS MR #: [id number] : 1990 Age/Sex: 30/F Req #: [id number] Adm Physician: Ordered by: OSBALDO COLEY MD Report #: [id number] Location: ER Room/Bed: Procedure: [id number] CT/CT BRAIN WO Exam Date: 06/24/20 Exam Time: 1746 REPORT STATUS: Signed Exam: Head CT without con trast History: Headache, migraine Comparison studies: Head CT 07/24/2018 Technique: Axial images were obtained from the skull base to the vertex. Coronal and sagittal images reconstructed from the axial data. Dose modulatio n, iterative reconstruction, and/or weight based adjustment of the mA/kV was u tilized to reduce the radiation dose to as low as reasonably achievable. Radiation dose: Total DLP: 1036.57 mGy*cm. Estimated effective dose: DLP x 0.015 Intravenous contrast: None Findings: Scalp: No abnormaliti es. Bones: No fractures, blastic or lytic lesions. Brain sulci: Appropria te for age. Ventricles: Normal in size and configuration. No hydrocephalus. Extra-axial spaces: No masses, no fluid collection. Parenchyma: No abno rmal densities. No masses, hemorrhage, acute or chronic vascular insults. Sellar/suprasellar region: No abnormalities. Craniocervical junction: Patent foramen magnum. No Chiari one malformation. Included paranasal sinuses: Small polyps or retention cysts in the partially imaged left maxillary sinus w ith persistent nonspecific frothy secretions in the right sphenoid sinus and l eft posterior ethmoid air cell. Incidental findings: Chronic inflammatory c hanges at the left mastoid tip which is partially opacified and sclerotic. IMPRESSION: 1. No intracranial abnormalities. 2. No changes from the prior head CT of 07/24/2018. Signed by: Dr. Michelle Ulloa M.D. on 06/24/2020 5:56 PM Dictated By: MICHELLE ULLOA MD 55 Transcribed By: HERBER on 06/24/201755 C OPY TO: OSBALDO COLEY MD ABDOMEN COMP INCL UPR or VSDTQ1402-32-56 12:06:[address] [address] Patient Name: YVETTE TOMPKINS MR #: [id number] : 1990 Age/Sex: 28/F Req #: [id number] Adm Physician: Ordered by: ADELINA LANE MD Report #: [id number] Location: ER Room/Bed: Procedure: [id number] DX/ABDOMEN COMP INCL UPR o r DECUB Exam Date: 08/18/18 Exam Time: 1150 RE PORT STATUS: Signed Exam: Abdominal film upright and supine Clinical History: Vomiting Comparison: None. DISCUSSION: Frontal view of the ab domen shows a nonobstructive bowel gas pattern with mild amount of retained st ool. Scattered loops of air-filled bowel. No abnormal calcifications. No acute bone abnormality. IMPRESSION: Nonobstructive bowel gas pattern. Mild amount of retained stool. Signed by: Dr. And rew Naye M.D. on 08/18/2018 12:13 PM Dictated By: FAY AYALA MD 1213 Transcribed By: HERBER on 08/18/18 1213 COPY TO: ADELINA LANE MD Sodium Wshdn5212-92-98 10:41:00* Test Item Value Reference Range Interpretation Comments Sodium Level (test code = 2951-2) 139 136-145 [facility]Potassium Xmnkd3012-98-99 10:41:00* Test Item Value Reference Range Interpretation Comments Potassium Level (test code = 2823-3) 3.7 3.5-5.1 [facility] ResourcesChloride Loxkt4571-82-13 10:41:00* Test Item Value Reference Range Interpretation Comments Chloride Level (test code = 2075-0) 103 98-107 [facility] ResourcesCarbon Dioxide Uglkz9754-88-48 10:41:00* Test Item Value Reference Range Interpretation Comments Carbon Dioxide Level (test code = 2028-9) 21 22-29 L [facility] ResourcesAnion Soa5749-46-90 10:41:00* Test Item Value Reference Range Interpretation Comments Anion Gap (test code = 96114-8) 18.7 8-16 H [facility] ResourcesBlood Urea Vxcfnqbx4576-26-09 10:41:00* Test Item Value Reference Range Interpretation Comments Blood Urea Nitrogen (test code = 3094-0) 12 7-26 [facility] ResourcesCreatinine2018-09-25 10:41:00* Test Item Value Reference Range Interpretation Comments Creatinine (test code = 2160-0) 0.77 0.57-1.11 [facility] ResourcesBUN/Creatinine Xwhsm1648-27-42 10:41:00* Test Item Value Reference Range Interpretation Comments BUN/Creatinine Ratio (test code = 3097-3) 16 05-18 [facility] ResourcesEstimat Glomerular Filtration Rate 2018-08-18 10:41:00* Test Item Value Reference Range Interpretation Comments Estimat Glomerular Filtration Rate (test code = 841484922) 60- >60 Ranges were taken from the National Kidney Disease Education Program and the [facility] literature.Reference ranges:60 or greater: Kmtjle42-72 ( for 3 consecutive months): Chronic kidney disease 15 or less: Kidney failureJoint [facility] between [facility] ResourcesGlucose Xnktc0528-88-79 10:41:00* Test Item Value Reference Range Interpretation Comments Glucose Level (test code = AGH8210) 93 74-118 [facility] ResourcesCalcium Vikpp7425-86-31 10:41:00* Test Item Value Reference Range Interpretation Comments Calcium Level (test code = 97725-5) 9.6 8.4-10.2 [facility] ResourcesTotal Nqxcqkmsz1866-21-87 10:41:00* Test Item Value Reference Range Interpretation Comments Total Bilirubin (test code = 1975-2) 1.7 0.2-1.2 H [facility] ResourcesAspartate Amino Transf (AST/SGOT) 2018-08-18 10:41:00* Test Item Value Reference Range Interpretation Comments Aspartate Amino Transf (AST/SGOT) (test code = Aspartate Amino Transf (AST/SGOT)) 14 5-34 [facility] ResourcesAlanine Aminotransferase (ALT/SGPT) 2018-08-18 10:41:00* Test Item Value Reference Range Interpretation Comments Alanine Aminotransferase (ALT/SGPT) (test code = 1742-6) 11 0-55 [facility] ResourcesTotal Ezyxeay6440-38-65 10:41:00* Test Item Value Reference Range Interpretation Comments Total Protein (test code = 2885-2) 7.5 6.5-8.1 [facility] ResourcesAlbumin2018-09-25 10:41:00* Test Item Value Reference Range Interpretation Comments Albumin (test code = 1751-7) 4.5 3.5-5.0 [facility] ResourcesGlobulin2018-09-25 10:41:00* Test Item Value Reference Range Interpretation Comments Globulin (test code = 56447-1) 3.0 2.3-3.5 [facility] ResourcesAlbumin/Globulin Sfhop0441-10-25 10:41:00 * Test Item Value Reference Range Interpretation Comments Albumin/Globulin Ratio (test code = 1759-0) 1.5 0.8-2.0 [facility] ResourcesAlkaline Cgbfxjaplkw5951-31-80 10:41:00* Test Item Value Reference Range Interpretation Comments Alkaline Phosphatase (test code = 6768-6) 67 40-150 [facility] ResourcesAmylase Znuwx8504-88-85 10:41:00* Test Item Value Reference Range Interpretation Comments Amylase Level (test code = 1798-8) 62 25-125 [facility] ResourcesLipase2018-09-25 10:41:00* Test Item Value Reference Range Interpretation Comments Lipase (test code = 3040-3) 12 8-78 [facility] ResourcesUrine UVD0088-45-34 10:29:00* Test Item Value Reference Range Interpretation Comments Urine WBC (test code = 5821-4) NONE 0-5 [facility] ResourcesUrine TVK4215-61-18 10:29:00* Test Item Value Reference Range Interpretation Comments Urine RBC (test code = 40173-5) NONE 0-5 [facility] ResourcesUrine Vxhepipy5620-79-86 10:29:00* Test Item Value Reference Range Interpretation Comments Urine Bacteria (test code = 80177-9) NONE NONE [facility] ResourcesUrine Epithelial Roubw8720-99-90 10:29:00 * Test Item Value Reference Range Interpretation Comments Urine Epithelial Cells (test code = 07620-6) MODERATE NONE [facility] Amorphous Yymkzwkm1169-84-01 10:29:00* Test Item Value Reference Range Interpretation Comments Urine Amorphous Sediment (test code = 8246-1) RARE FEW [facility] Hxpeb8053-13-93 10:29:00* Test Item Value Reference Range Interpretation Comments Urine Mucus (test code = 8247-9) RARE RARE [facility] ResourcesUrine Oocqi5540-82-77 10:17:00* Test Item Value Reference Range Interpretation Comments Urine Color (test code = 5778-6) YELLOW YELLOW [facility] Tpeinxb1222-42-36 10:17:00* Test Item Value Reference Range Interpretation Comments Urine Clarity (test code = 57832-8) SL CLOUDY CLEAR [facility] ResourcesUrine Specific Inhieyk4528-23-63 10:17:00 * Test Item Value Reference Range Interpretation Comments Urine Specific [place] (test code = 5811-5) 1.030 1.010-1.02 5 H [facility] ResourcesUrine nE7664-67-72 10:17:00* Test Item Value Reference Range Interpretation Comments Urine pH (test code = 27765-5) 6 5-7 [facility] ResourcesUrine Leukocyte Kiifwsts8054-80-27 10:17:00* Test Item Value Reference Range Interpretation Comments Urine Leukocyte Esterase (test code = 5799-2) NEGATIVE NEGATIVE [facility] ResourcesUrine Kocyxwj8960-21-03 10:17:00* Test Item Value Reference Range Interpretation Comments Urine Nitrite (test code = 12643-8) NEGATIVE NEGATIVE [facility] ResourcesUrine Jugwdim2652-10-20 10:17:00* Test Item Value Reference Range Interpretation Comments Urine Protein (test code = 5804-0) TRACE NEGATIVE H [facility] Glucose (UA)2018-08-18 10:17:00* Test Item Value Reference Range Interpretation Comments Urine Glucose (UA) (test code = 2349-9) NEGATIVE NEGATIVE [facility] ResourcesUrine Uzwkoxz4426-09-18 10:17:00* Test Item Value Reference Range Interpretation Comments Urine Ketones (test code = 19684-6) 2+ NEGATIVE H [facility] ResourcesUrine Ufpcuejduxcp2166-09-64 10:17:00* Test Item Value Reference Range Interpretation Comments Urine Urobilinogen (test code = 46765-1) 0.2 0.2-1 [facility] ResourcesUrine Xdojqwnzj4427-32-29 10:17:00* Test Item Value Reference Range Interpretation Comments Urine Bilirubin (test code = 1978-6) NEGATIVE NEGATIVE [facility] ResourcesUrine [id number] 10:17:00* Test Item Value Reference Range Interpretation Comments Urine Blood (test code = 39268-8) TRACE NEGATIVE H [facility] ResourcesUrine [id number] 10:17:00* Test Item Value Reference Range Interpretation Comments Urine Test (test code = 2106-3) NEGATIVE NEGATIVE [facility] ResourcesWhite Blood [id number] 10:15:00* Test Item Value Reference Range Interpretation Comments White Blood Count (test code = 6690-2) 11.96 4.8-10.8 H [facility] ResourcesRed Blood [id number] 10:15:00* Test Item Value Reference Range Interpretation Comments Red Blood Count (test code = 789-8) 4.83 3.6-5.1 [facility] ResourcesHemoglobin2018-09-25 10:15:00* Test Item Value Reference Range Interpretation Comments Hemoglobin (test code = 11154-3) 15.1 12.0-16.0 [facility] ResourcesHematocrit2018-09-25 10:15:00* Test Item Value Reference Range Interpretation Comments Hematocrit (test code = 4544-3) 43.4 34.2-44.1 [facility] ResourcesMean Corpuscular [id number] 10:15:00* Test Item Value Reference Range Interpretation Comments Mean Corpuscular Volume (test code = 787-2) 89.9 81-99 [facility] ResourcesMean Corpuscular [id number] 10:15:00* Test Item Value Reference Range Interpretation Comments Mean Corpuscular Hemoglobin (test code = 785-6) 31.3 28-32 [facility] ResourcesMean Corpuscular Hemoglobin Concent 2018-08-18 10:15:00* Test Item Value Reference Range Interpretation Comments Mean Corpuscular Hemoglobin Concent (test code = 786-4) 34.8 31-35 [facility] ResourcesRed Cell Distribution [id number] 10:15:00* Test Item Value Reference Range Interpretation Comments Red Cell Distribution Width (test code = 67357-4) 11.8 11.7 -14.4 [facility] ResourcesPlatelet [id number] 10:15:00* Test Item Value Reference Range Interpretation Comments Platelet Count (test code = 777-3) 238 140-360 [facility] ResourcesNeutrophils (%) (Auto)2018-08-18 10:15:00 * Test Item Value Reference Range Interpretation Comments Neutrophils (%) (Auto) (test code = 77671-3) 85.1 38.7-80.0 H [facility] ResourcesLymphocytes (%) (Auto)2018-08-18 10:15:00 * Test Item Value Reference Range Interpretation Comments Lymphocytes (%) (Auto) (test code = 736-9) 10.9 18.0-39.1 L [facility] ResourcesMonocytes (%) (Auto)2018-08-18 10:15:00* Test Item Value Reference Range Interpretation Comments Monocytes (%) (Auto) (test code = 5905-5) 3.3 4.4-11.3 L [facility] ResourcesEosinophils (%) (Auto)2018-08-18 10:15:00 * Test Item Value Reference Range Interpretation Comments Eosinophils (%) (Auto) (test code = 713-8) 0.1 0.0-6.0 [facility] ResourcesBasophils (%) (Auto)2018-08-18 10:15:00* Test Item Value Reference Range Interpretation Comments Basophils (%) (Auto) (test code = 706-2) 0.3 0.0-1.0 [facility] ResourcesIM GRANULOCYTES %2018-08-18 10:15:00* Test Item Value Reference Range Interpretation Comments IM GRANULOCYTES % (test code = IM GRANULOCYTES %) 0.3 0.0- 1.0 [facility] ResourcesNeutrophils # (Auto)2018-08-18 10:15:00* Test Item Value Reference Range Interpretation Comments Neutrophils # (Auto) (test code = 751-8) 10.2 2.1-6.9 H [facility] ResourcesLymphocytes # (Auto)2018-08-18 10:15:00* Test Item Value Reference Range Interpretation Comments Lymphocytes # (Auto) (test code = 03511-9) 1.3 1.0-3.2 [facility] ResourcesMonocytes # (Auto)2018-08-18 10:15:00* Test Item Value Reference Range Interpretation Comments Monocytes # (Auto) (test code = 742-7) 0.4 0.2-0.8 [facility] ResourcesEosinophils # (Auto)2018-08-18 10:15:00* Test Item Value Reference Range Interpretation Comments Eosinophils # (Auto) (test code = 711-2) 0.0 0.0-0.4 [facility] ResourcesBasophils # (Auto)2018-08-18 10:15:00* Test Item Value Reference Range Interpretation Comments Basophils # (Auto) (test code = 704-7) 0.0 0.0-0.1 [facility] ResourcesAbsolute Immature Granulocyte (auto 2018-08-18 10:15:00* Test Item Value Reference Range Interpretation Comments Absolute Immature Granulocyte (auto (zeke t code = Absolute Immature Granulocyte (auto) 0.03 0-0.1 [facility] ResourcesCT BRAIN [id number] 13:47:00 [place] [id number] Patient Name: YVETTE TOMPKINS MR #: [id number] : 1990 Age/Sex: 28/F Req #: [id number] Adm Physician: Ordered by: AMARIS TREVIÑO NP Report #: [id number] Location: Room/Bed : Procedure: [id number] CT/CT BRAIN WO Exam Date: Exam Time: [...] Impression: No intracranial abnormalities. Signed by: Dr. To Mccallum M.D. on 07/24/2018 1:48 PM Dictated By: TO RUIZ MD 47 Transcribed By: HERBER on 07/24/18 134 COPY TO: AMARIS JIMENES NP
[2020-06-29] MEDS ORDERED: ZOFRAN4 MG PO (08:36)
[2020-06-29] MEDS ORDERED: REGLAN10 MG PO (08:36)
[2020-06-29] MEDS ORDERED: FIORICET 50-301 EACH PO (08:36)
--- NOTE | 2020-06-29 08:48 | Emergency Department Note ---
History of Present Illnes History of Present Illness Chief Complaint: Eye, Ear, Nose, Throat, Dental History of Present Illness This is a 30 year old female arrives to the ED with tooth pain and headache. Patient is requesting [place] and states pain medicine she received is not working. Patient denies being discharged home on antibiotics. Denies any sore throat, difficulty breathing or drooling. Chief Complaint Comment PT KNOWN TO STAFF. HERE TODAY BECAUSE SHE HAD A TOOTH PULLED YESTERDAY, AND TODAY WANTING PAIN MEDICATION FOR SAID PAIN. PT RECENTLY SEEN HERE FOR HEADACHE AND HAS RX OF FIORCET AND CLINDAMYCIN FROM LAST TOOTH VISIT. PT AAOX4. ASL Intrepeter [id number] Luke A Historian: Patient Arrival Mode: Car Onset (how long ago): day(s) Radiation: Reports non-radiation Timing of current episode: intermittent Chronicity: new Context: Reports recent illness Relieving factors: none Exacerbating factors: none Past Medical/Family History Physician Review I have reviewed the patient's past medical and family history. Any updates have been documented here. Past Medical History Recent Fever: No Clinical Suspicion of Infectio: No New/Unexplained Change in Ment: No Past Medical History: Migraines Other Medical History: DEAF MUTE Past Surgical History: T&A Other Surgery: TONSILECTOMY EYE SURGERY EAR TUBES Social History Smoking Cessation: Never Smoker Other Last Tetanus: UKN Review of Systems Review of Systems Constitutional: Reports no symptoms EENTM: Reports as per HPI, Reports mouth pain Cardiovascular: Reports no symptoms Respiratory: Reports no symptoms Gastrointestinal: Reports no symptoms Genitourinary: Reports no symptoms Musculoskeletal: Reports no symptoms Integumentary: Reports no symptoms Neurological: Reports no symptoms Psychological: Reports no symptoms Endocrine: Reports no symptoms Hematological/Lymphatic: Reports no symptoms Review of other systems: All other systems negative Physical Exam Related Data Allergies: Coded Allergies: amoxicillin (Verified Allergy, Unknown, 08/18/18) clavulanic acid (Verified Allergy, Unknown, 08/18/18) Triage Vital Signs Vital Signs Date Time Temp Pulse Resp B/P (MAP) Pulse Ox O2 Delivery O2 Flow Rate FiO2 06/29/20 07:41 Vital signs reviewed: Yes Physical Exam CONSTITUTIONAL Constitutional: Present well-developed, Present well-nourished HENT HENT: Present normocephalic, Present atraumatic, Present oropharynx clear/moist, Present nose normal, Present dental caries; Absent dentition normal (blood clot noted at site of tooth extraction, no swelling or tongue elevation noted, airway intact, no drooling, no stridor) HENT L/R: Present left ext ear normal, Present right ext ear normal EYES Eyes: Reports PERRL, Reports conjunctivae normal NECK Neck: Present ROM normal PULMONARY Pulmonary: Present effort normal, Present breath sounds normal CARDIOVASCULAR Cardiovascular: Present regular rhythm, Present heart sounds normal, Present capillary refill normal, Present normal rate GASTROINTESTINAL Abdominal: Present soft, Present nontender, Present bowel sounds normal GENITOURINARY Genitourinary: Present exam deferred SKIN Skin: Present warm, Present dry MUSCULOSKELETAL Musculoskeletal: Present ROM normal NEUROLOGICAL Neurological: Present alert, Present oriented x 3, Present no gross motor or sensory deficits PSYCHOLOGICAL Psychological: Present mood/affect normal, Present judgement normal Assessment & Plan Medical Decision Making MDM 22-year-old female arrived to the ED with complaints of dental pain and headache. Patient well-appearing, marked dental caries and decay noted. No concerns of dry socket on exam, no concerns of Keanu angina on exam, patient maintaining oral airway with no evidence of stridor, drooling or oral swelling noted. Spoke to patient at length using a protective signal installer helper about complex migraine and trying to obtain relief. Patient discharged home on Reglan, requested [place], encouraged to use of anti-inflammatories a migraine cocktail for relief. Patient expressed understanding. Assessment & Plan Final Impression: (1) Dental decay (2) Migraine Depart Disposition: HOME, SELF-CARE Last Vital Signs Date Time Temp Pulse Resp B/P (MAP) Pulse Ox O2 Delivery O2 Flow Rate FiO2 06/29/20 07:41 ADALGISA MÉNDEZ DO Jun 29, 2020 08:48
== END 2020-06-29 08:48 | disposition home or self-care (01) ==
LOC: ER 08:31
DX: K08.89 Other specified disorders of teeth and supporting structures (principal); K02.9 Dental caries, unspecified; G43.909 Migraine, unspecified, not intractable, without status migrainosus
CPT/HCPCS: 99283